=== PATIENT | male | born 1950 | race Hispanic/Latino ===

== ENCOUNTER 2018-05-05 00:14 | Inpatient (IN) | payer MEDICARE, OTHER ==
[~2018-05-05] VITALS: Ht 170.2 cm; Wt 84.1 kg
[~2018-05-05 00:14] MED LIST: AMOXICILLI250 MG/5 M ORAL; ASPIRIN EC81 MG ORAL; BIAXIN500 MG ORAL; CARVEDILOL12.5 MG ORAL; COREG25 MG ORAL; GLIPIZIDE10 MG PO; LOVASTATIN40 MG ORAL; NIFEDICAL XL60 MG ORAL; PLAVIX75 MG ORAL; PROTONIX40 MG ORAL; STARLIX120 MG ORAL; STARLIX60 MG ORAL; UNOBMED
[2018-05-05] MEDS ORDERED: Sodium Chloride 500ML 500 ML IV ONE (00:30)
--- NOTE | 2018-05-05 00:30 | Emergency Room Report ---
History of Present Illness General Chief Complaint: Generalized Weakness Source: Patient, Medical Record, EMS Present Illness HPI This is a 67-year-old male with a history of renal failure on hemodialysis. Hemodialysis days are Sunday, and Sunday. He also has diabetes and peripheral arterial disease. He presents with chief complaint of joint weakness. Onset for last 3 days. No fever chills. Decreased appetite. Unable to stand because weakness. 2 weeks ago he had arterial bypass to get cervical patient back to his lower extremities. 3 days ago he noticed discoloration and swelling to his right foot. His been getting worse. Now can't bear weight. Per EMS, his blood sugar was very high. Patient complaining of nausea but no vomiting or diarrhea. No cough or congestion. Minimal pain in the foot. Allergies: Coded Allergies: No Known Allergies (Unverified , 05/05/18) Patient History Past Medical History: see triage record, old chart reviewed, DM Past Surgical History: other Pertinent Family History: none Social History: Denies: smoking Immunizations: other Reviewed Nursing Documentation: PMH: Agreed; PSxH: Agreed Nursing Documentation-PMH Hx Hypertension: Yes Hx Diabetes: Yes Hx Dialysis: Yes - T--Sun Review of Systems Constitutional: Reports: malaise, weakness Eye: Denies: eye pain, blurred vision ENT: Denies: ear pain, nose congestion, throat swelling Respiratory: Denies: cough, shortness of breath Cardiovascular: Denies: chest pain, palpitations Gastrointestinal: Denies: abdominal pain, diarrhea, nausea, vomiting Musculoskeletal: Denies: back pain, joint pain Skin: Denies: rash Neurological: Denies: headache, numbness Endocrine: Denies: increased thirst, increased urine Hematologic/Lymphatic: Denies: easy bruising All Other Systems: negative except mentioned in HPI Physical Exam Vital Signs Date Time Temp Pulse Resp B/P (MAP) Pulse Ox O2 Delivery O2 Flow Rate FiO2 05/05/18 00:08 100.5 87 18 120/58 98 Room Air 100.6 vitals with low-grade feve Sp02 EP Interpretation: reviewed, normal General Appearance: well appearing, no apparent distress, alert Head: normocephalic, atraumatic Eyes: bilateral eye PERRL, bilateral eye EOMI ENT: hearing grossly normal, normal pharynx Neck: full range of motion, supple, no meningismus Respiratory: chest non-tender, lungs clear, normal breath sounds Cardiovascular #1: regular rate, rhythm, no murmur Gastrointestinal: normal bowel sounds, non tender, no mass, no organomegaly, no bruit, non-distended Musculoskeletal: back normal, normal range of motion, other - Right foot: There is edema with ecchymosis from midfoot to calcaneus. There is abrasion to the medial malleolus. There is no pulse that can be palpated or dopplered on the foot. Unable to fill a pulse in the popliteal fossa. Neurologic: alert, oriented x3 Psychiatric: mood/affect normal Skin: warm/dry Procedures Critical Care Time Critical Care Time Critical care is mandated in this patient who presented with sepsis from diabetic foot gangrene versus ischemia. Patient require my urgent intervention to attenuate the risks of metabolic collapse which may lead to cardiovascular collapse and . Critical care time is 35 minutes excluding any reportable procedure. Critical care time included evaluation, multiple reevaluation, looking at old charts, interpreting laboratory and diagnostic data, discussing case with patient and family and consultants, and charting. Medical Decision Making Diagnostic Impression: Primary Impression: Sepsis Qualified Codes: A41.9 - Sepsis, unspecified organism Additional Impressions: Gangrene of right foot Peripheral arterial occlusive disease Hyperglycemia due to type 1 diabetes mellitus ESRD (end stage renal disease) on dialysis ACS (acute coronary syndrome) ER Course Patient present with weakness and has a white count. This is most likely secondary to ischemia and necrotic tissue of his foot. There is no pulse. This has been ongoing for 3 days already. Antibiotics given. This may explain worsening of his cardiac function. This may be demand ischemia. Aspirin and Lovenox also given. Patient is more comfortable. We'll admit for IV antibiotics and further workup. I contacted Dr. Espinoza for admission. Lab Results Impression labs with elevated troponin and the wbc EKG Diagnostic Results Rate: normal Rhythm: NSR ST Segments: other - RBBB Rhythm Strip Diag. Results Rhythm Strip Time: 00:47 EP Interpretation: yes Rate: 80 Rhythm: NSR, no PVC's, no ectopy Chest X-Ray Diagnostic Results Chest X-Ray Diagnostic Results : Chest X-Ray Ordered: Yes # of Views/Limited/Complete: 1 View Indication: Shortness of Breath EP Interpretation: Yes Interpretation: no consolidation, no effusion, no pneumothorax, other - CM Impression: No acute disease Other X-Ray Diagnostic Results Other X-Ray Diagnostic Results : X-Ray ordered: Rt foot xrays # of Views/Limited Vs Complete: 3 View Indication: Pain EP Interpretation: Yes Interpretation: no dislocation, no soft tissue swelling, other - calcified vessels. degenerative changes. no gas Impression: No acute disease Electronically Signed by: Michael Villarreal MD Last Vital Signs Date Time Temp Pulse Resp B/P (MAP) Pulse Ox O2 Delivery O2 Flow Rate FiO2 05/05/18 00:08 100.5 87 18 120/58 98 Room Air 100.6 Status: improved Disposition: ADMITTED INPATIENT Condition: Serious Scripts Unable to Obtain Active Prescriptions or Reported Meds MICHAEL VILLARREAL M.D. May 05, 2018 00:30
[2018-05-05 01:20] LABS: HEMATOCRIT 29.3 % (42.0-52.0); HEMOGLOBIN 9.6 G/DL (14.2-18.0); MEAN CORPUSCULAR VOLUME 86 FL (80-99); PLATELET COUNT 272 K/UL (150-450); RED CELL DISTRIBUTION WIDTH 14.5 % (11.6-14.8); WHITE BLOOD COUNT 20.7 K/UL (4.8-10.8)
[2018-05-05 01:29] LABS: INR 1.2 (0.9-1.1)
[2018-05-05 01:35] LABS: ALANINE AMINOTRANSFERASE 47 U/L (12-78); ALBUMIN 2.6 G/DL (3.4-5.0); ALBUMIN/GLOBULIN RATIO 0.6 (1.0-2.7); ALKALINE PHOSPHATASE 269 U/L (46-116); ANION GAP 8 mmol/L (5-15); ASPARTATE AMINO TRANSFERASE 50 U/L (15-37); BILIRUBIN,TOTAL 0.6 MG/DL (0.2-1.0); BLOOD UREA NITROGEN 53 mg/dL (7-18); CARBON DIOXIDE 27 MMOL/L (21-32); CHLORIDE 94 MMOL/L (98-107); CKMB 2.4 NG/ML (0.0-3.6); CREATINE KINASE 484 U/L (26-308); CREATININE 5.2 MG/DL (0.55-1.30); POTASSIUM 4.2 MMOL/L (3.5-5.1); SODIUM 129 MMOL/L (136-145)
[2018-05-05 01:45] VITALS: BP 157/77
[2018-05-05] MEDS ORDERED: Insulin Human Regular 100units/ml 3ml IV ONE ×2 (01:45→04:15)
[2018-05-05] MEDS ORDERED: Piperacillin/Tazobactam 3.375 GM in NS 110 ML IVPB ONE (01:45)
[2018-05-05] MEDS ORDERED: Aspirin Baby 81mg ORAL ONE (01:45)
[2018-05-05] MEDS ORDERED: Enoxaparin 80mg Inj SUBQ ONE (01:45)
[2018-05-05] MEDS ORDERED: Vancomycin 1.5gm/D5W 250ml 250 ML IVPB ONE (01:45)
--- NOTE | 2018-05-05 02:05 | Diagnostic Imaging Report ---
EXAM: XR Chest, 1 View CLINICAL HISTORY: PAIN TECHNIQUE: Frontal view of the chest. COMPARISON: No relevant prior studies available. FINDINGS: Lungs: Unremarkable. No consolidation. Pleural space: Unremarkable. No pneumothorax. Heart: Unremarkable. No cardiomegaly. Mediastinum: Unremarkable. Bones/joints: Unremarkable. IMPRESSION: No acute findings.
--- NOTE | 2018-05-05 02:06 | Diagnostic Imaging Report ---
EXAM: XR Right Foot Complete, 3 or More Views CLINICAL HISTORY: PAIN TECHNIQUE: Frontal, lateral and oblique views of the right foot. COMPARISON: No relevant prior studies available. FINDINGS: Bones/joints: Possible nondisplaced fractures at the bases of the third through fifth proximal phalanges. No dislocation. Soft tissues: Unremarkable. No radiopaque foreign body. IMPRESSION: Possible nondisplaced fractures at the bases of the third through fifth proximal phalanges.
[2018-05-05 03:43] VITALS: BP 100/57
[2018-05-05 04:39] VITALS: BP 95/68
[2018-05-05 05:10] VITALS: BP 97/63
[2018-05-05] MEDS ORDERED: Milk of Magnesia 30ml Ud ORAL PRN (06:00)
[2018-05-05] MEDS ORDERED: Zolpidem 5mg tab ORAL PRN (06:00)
[2018-05-05 08:11] LABS: HEMATOCRIT 28.9 % (42.0-52.0); HEMOGLOBIN 9.7 G/DL (14.2-18.0); MEAN CORPUSCULAR VOLUME 87 FL (80-99); PLATELET COUNT 285 K/UL (150-450); RED BLOOD COUNT 3.34 M/UL (4.70-6.10); RED CELL DISTRIBUTION WIDTH 14.9 % (11.6-14.8)
[2018-05-05 08:15] LABS: WHITE BLOOD COUNT 25.2 K/UL (4.8-10.8)
[2018-05-05] MEDS: NovoLOG Insulin Flexpen SUBQ SCH ×4 (08:25→20:57)
[2018-05-05] MEDS: Heparin 5000 units/ml inj SUBQ SCH ×2 (08:25→20:55)
[2018-05-05 08:42] LABS: ANION GAP 15 mmol/L (5-15); BLOOD UREA NITROGEN 53 mg/dL (7-18); CALCIUM 9.5 MG/DL (8.5-10.1); CARBON DIOXIDE 25 MMOL/L (21-32); CHLORIDE 96 MMOL/L (98-107); CREATININE 5.3 MG/DL (0.55-1.30); POTASSIUM 3.9 MMOL/L (3.5-5.1); SODIUM 136 MMOL/L (136-145)
[2018-05-05] MEDS: Piperacillin/Tazobactam 2.25 GM in D5W 55 ML IV SCH ×2 (10:06→17:56)
--- NOTE | 2018-05-05 10:22 | History & Physical ---
History and Physical History & Physicial 67-year-old male with a history of renal failure on hemodialysis. No fever chills. patient with significant weakness. 2 weeks ago he had arterial bypass to get cervical patient back to his lower extremities. 3 days ago he noticed discoloration and swelling to his right foot. His been getting worse. He cannot bear weight. patient with elevated sugars. Patient complaining of nausea. No cough or congestion. Patient with pain in the foot. Allergies: No Known Allergies (Unverified , 05/05/18) Patient History Past Medical History: ESRD, PAD, DM Past Surgical History: vascular Pertinent Family History: none Social History: Denies: smoking, disabled Reviewed of systems: as above Vital Signs in ER Date Time Temp Pulse Resp B/P (MAP) Pulse Ox O2 Delivery O2 Flow Rate FiO2 05/05/18 00:08 100.5 87 18 120/58 98 Room Air 100.6 Sp02 EP Interpretation: reviewed, normal General Appearance: well appearing, no apparent distress, alert Head: normocephalic, atraumatic Eyes: bilateral eye PERRL, bilateral eye EOMI ENT: hearing grossly normal, normal pharynx Neck: full range of motion, supple, no meningismus Respiratory: chest non-tender, lungs clear, normal breath sounds Cardiovascular #1: regular rate, rhythm, no murmur Gastrointestinal: normal bowel sounds, non tender, Musculoskeletal: Right foot: There is edema with ecchymosis from midfoot to calcaneus. There is abrasion to the medial malleolus. There is no pulse Neurologic: alert, oriented x3 Psychiatric: mood/affect normal Skin: warm/dry Laboratory Tests Test 05/05/18 00:40 05/05/18 06:35 White Blood Count 20.7 K/UL (4.8-10.8) H 25.2 K/UL (4.8-10.8) *H Red Blood Count 3.40 M/UL (4.70-6.10) L 3.34 M/UL (4.70-6.10) L Hemoglobin 9.6 G/DL (14.2-18.0) L 9.7 G/DL (14.2-18.0) L Hematocrit 29.3 % (42.0-52.0) L 28.9 % (42.0-52.0) L Mean Corpuscular Volume 86 FL (80-99) 87 FL (80-99) Mean Corpuscular Hemoglobin 28.2 PG (27.0-31.0) 29.2 PG (27.0-31.0) Mean Corpuscular Hemoglobin Concent 32.7 G/DL (32.0-36.0) 33.7 G/DL (32.0-36.0) Red Cell Distribution Width 14.5 % (11.6-14.8) 14.9 % (11.6-14.8) H Platelet Count 272 K/UL (150-450) 285 K/UL (150-450) Mean Platelet Volume 8.2 FL (6.5-10.1) 7.7 FL (6.5-10.1) Neutrophils (%) (Auto) % (45.0-75.0) % (45.0-75.0) Lymphocytes (%) (Auto) % (20.0-45.0) % (20.0-45.0) Monocytes (%) (Auto) % (1.0-10.0) % (1.0-10.0) Eosinophils (%) (Auto) % (0.0-3.0) % (0.0-3.0) Basophils (%) (Auto) % (0.0-2.0) % (0.0-2.0) Differential Total Cells Counted 100 100 Neutrophils % (Manual) 82 % (45-75) H 81 % (45-75) H Lymphocytes % (Manual) 4 % (20-45) L 8 % (20-45) L Monocytes % (Manual) 13 % (1-10) H 11 % (1-10) H Eosinophils % (Manual) 1 % (0-3) 0 % (0-3) Basophils % (Manual) 0 % (0-2) 0 % (0-2) Band Neutrophils 0 % (0-8) 0 % (0-8) Platelet Estimate Adequate Adequate Platelet Morphology Normal Normal Anisocytosis 1+ 1+ Ovalocytes 1+ Acanthocytes 1+ Prothrombin Time 12.5 SEC (9.30-11.50) H Prothromb Time International Ratio 1.2 (0.9-1.1) H Activated Partial Thromboplast Time 35 SEC (23-33) H Sodium Level 129 MMOL/L (136-145) L 136 MMOL/L (136-145) Potassium Level 4.2 MMOL/L (3.5-5.1) 3.9 MMOL/L (3.5-5.1) Chloride Level 94 MMOL/L (98-107) L 96 MMOL/L (98-107) L Carbon Dioxide Level 27 MMOL/L (21-32) 25 MMOL/L (21-32) Anion Gap 8 mmol/L (5-15) 15 mmol/L (5-15) Blood Urea Nitrogen 53 mg/dL (7-18) H 53 mg/dL (7-18) H Creatinine 5.2 MG/DL (0.55-1.30) H 5.3 MG/DL (0.55-1.30) H Estimat Glomerular Filtration Rate 11.1 mL/min (>60) 10.8 mL/min (>60) Glucose Level 646 MG/DL (74-106) *H 233 MG/DL (74-106) #H Lactic Acid Level 1.70 mmol/L (0.4-2.0) Calcium Level 10.0 MG/DL (8.5-10.1) 9.5 MG/DL (8.5-10.1) Total Bilirubin 0.6 MG/DL (0.2-1.0) Aspartate Amino Transf (AST/SGOT) 50 U/L (15-37) H Alanine Aminotransferase (ALT/SGPT) 47 U/L (12-78) Alkaline Phosphatase 269 U/L (46-116) H Total Creatine Kinase 484 U/L (26-308) H Creatine Kinase MB 2.4 NG/ML (0.0-3.6) Creatine Kinase MB Relative Index 0.4 Troponin I 1.247 ng/mL (0.000-0.056) Total Protein 7.3 G/DL (6.4-8.2) Albumin 2.6 G/DL (3.4-5.0) L Globulin 4.7 g/dL Albumin/Globulin Ratio 0.6 (1.0-2.7) L Hypochromasia 1+ IMPRESSION ESRD anemia possible sepsis wound infection PAD DM HTN elevated troponin, likely leak PLAN monitor sugars wound care iv antibiotics ID eval renal for HD has been on HD chronically impression, plan, and exam edited and reviewed in detail care discussed with Alvaro Terrazas MD May 05, 2018 10:22
[2018-05-05] MEDS ORDERED: Zosyn 3.375gm/50ml Premix 50 ML IVPB SCH (12:00)
[2018-05-05 16:00] VITALS: BP 107/56
--- NOTE | 2018-05-05 17:30 | Consultation ---
DATE OF CONSULTATION: 05/05/2018 CONSULTING PHYSICIAN: Esteban Maldonado M.D. REASON FOR CONSULTATION: 1. End-stage renal disease, on hemodialysis. 2. Hypertension. REFERRING PHYSICIAN: Alvaro Espinoza M.D. HISTORY OF PRESENT ILLNESS: The patient is a pleasant 67-year-old male, undergoes hemodialysis every Sunday, , and Sunday. The patient does have chronic morbidities consisting of diabetes and peripheral arterial disease. He has decreased appetite, unable to stand, feeling weak over the last several days. Three days ago, he noted discoloration and swelling of his right foot, which had progressively gotten worse and he was having difficulty controlling his blood glucose. No nausea, vomiting, or diarrhea. He says that he continues to go to hemodialysis Sunday, , and Sunday. 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 ALLERGIES: No known drug allergies. PAST MEDICAL HISTORY: 1. Hypertension. 2. Diabetes mellitus. 3. End-stage renal disease, on hemodialysis. 4. Peripheral arterial disease. 5. Hyperlipidemia. PAST SURGICAL HISTORY: Dialysis access. FAMILY HISTORY: Positive for hypertension, diabetes, and hyperlipidemia. SOCIAL HISTORY: No current tobacco, alcohol, or illicit drug use. REVIEW OF SYSTEMS: NEUROLOGIC: The patient denies headache, change in vision, syncope or presyncopal episodes. CARDIOVASCULAR: No current chest pain, palpitations, or angina. PULMONARY: No difficulty breathing, productive cough or sputum. GASTROINTESTINAL/GENITOURINARY: No changes in nausea, vomiting or diarrhea. ENDOCRINOLOGY: Denies sweats, fevers, or chills. MUSCULOSKELETAL: The patient feeling weak, tired and fatigue. LABORATORY AND DIAGNOSTIC DATA: Labs 05/05/2018, white cell count 25.2, hemoglobin 9.7, and platelet count 285. Sodium 136, potassium 3.9, BUN 53, creatinine 5.3, serum glucose 233, calcium 9.5. PHYSICAL EXAMINATION: GENERAL: The patient awake, alert, not otherwise in distress. VITAL SIGNS: Blood pressure 97/63, respiratory rate 20, pulse 76, temperature 97.6 degrees, 95% oxygen saturation on room air. HEENT: Extraocular muscles intact. No lymphadenopathy noted. CARDIOVASCULAR: S1 and S2. No rubs or gallops. PULMONARY: Clear to auscultation bilaterally. No rales, rhonchi or wheezes. ABDOMEN: Nondistended and nontender. EXTREMITY: Right foot with edema and ecchymosis to the midfoot of near calcaneus region. ASSESSMENT AND PLAN: 1. End-stage renal disease, on hemodialysis. We will continue hemodialysis on a Sunday, , and Sunday schedule. We will check daily laboratories. 2. Anemia of chronic kidney disease. We will continue Epogen if hemoglobin less than 10. 3. Sepsis/cellulitis could be secondary to ischemia, necrotic tissue of his foot. Antibiotic management per primary care physician and Infectious Disease. 4. Hypertension. Adjust medications as deemed appropriate. 5. Diabetes mellitus. Continue outpatient antiglycemic medications. Let me take this opportunity to thank, Dr. Espinoza, for allowing me to assist in the care of this patient during this hospitalization. I will continue to follow him on a daily basis until time of discharge. Esteabn Maldnoado MD DR: ANIBAL JOB#: [id number] CC:
[2018-05-05] MEDS ORDERED: ASPIRIN EC81 MG ORAL (18:09)
[2018-05-05] MEDS ORDERED: HYDRALAZINE HCL50 MG ORAL (18:14)
[2018-05-05] MEDS ORDERED: CARVEDILOL12.5 MG ORAL (18:14)
[2018-05-05] MEDS ORDERED: GLIPIZIDE XL10 MG ORAL (18:14)
[2018-05-05] MEDS ORDERED: AMLODIPINE BESY10 MG ORAL (18:23)
[2018-05-05] MEDS ORDERED: ZYRTEC10 MG ORAL (18:23)
[2018-05-05] MEDS ORDERED: LOSARTAN POTAS100 MG ORAL (18:23)
[2018-05-05] MEDS ORDERED: TRAZODONE HCL150 MG ORAL (18:23)
[2018-05-05] MEDS ORDERED: ATORVASTATIN CA40 MG ORAL (18:23)
[2018-05-05] MEDS ORDERED: CLOPIDOGREL75 MG ORAL (18:23)
--- NOTE | 2018-05-05 18:45 | Consultation ---
DATE OF CONSULTATION: 05/05/2018 INFECTIOUS DISEASE CONSULTATION CONSULTING PHYSICIAN: Moy Gannon M.D. This consult is for coverage of Dr. Tovar. PRIMARY ATTENDING PHYSICIAN: Alvaro Espinoza M.D. REASON FOR CONSULTATION: Diabetic foot, sepsis. HISTORY OF PRESENT ILLNESS: This is a 67-year-old male, admitted yesterday complaining of pain, discoloration, and swelling in the right foot that is getting worse. The patient had low-grade fever. In the ER, he had temperature of 100.6 and leukocytosis that is increasing today. PAST MEDICAL HISTORY: Significant for diabetes mellitus, end-stage renal disease, on hemodialysis, peripheral vascular disease, hypertension, and anemia. ALLERGIES: No known drug allergies. MEDICATIONS: Getting Epogen, Zosyn, heparin, insulin, Prevacid, vancomycin, and sodium chloride. SOCIAL HISTORY: No history of alcohol or drug abuse. He is and originally from [facility]. REVIEW OF SYSTEMS: The patient is a very poor historian. Occasional cough. No chest pain. He has nausea, vomiting, and mild pain in the right foot. PHYSICAL EXAMINATION: VITAL SIGNS: Temperature is 97.6, pulse 76, blood pressure 97/63. GENERAL APPEARANCE: No acute distress. HEAD AND NECK: Pale conjunctivae. HEART: Normal rate, regular. LUNGS: Clear. ABDOMEN: Soft, nontender. EXTREMITIES: He has no edema. Muscle atrophy in legs. He has coolness in the right foot. He has skin ulcer in the right malleolar area with skin discoloration mainly in ankle and to some extent in right big toe. LABORATORY AND DIAGNOSTIC DATA: WBC 25.2, hemoglobin 9.7, hematocrit 28.9, platelets 285,000. Sodium 136, potassium 3.6, chloride 96, bicarbonate 25, BUN 53, creatinine 5.3, glucose 233, and was 646 at the time of admission. Troponin is 1.24. CK is elevated at 484. Alkaline phosphatase is 269, AST is 50. Foot x-ray, possible nondisplaced fracture of the base of the third through fifth proximal phalanges. Chest x-ray, no acute findings. IMPRESSION: Sepsis with fever and leukocytosis. The patient seems to have diabetic foot with ischemia in the right foot. He has diabetes with hyperglycemia. He has end-stage renal disease, on hemodialysis. He has history of peripheral vascular disease. RECOMMENDATION: We will continue with Zosyn and vancomycin. The patient needs arterial duplex to rule out peripheral vascular disease. We will continue with current medication of vancomycin and Zosyn. We will follow up the culture. At the end of my exam, I thank Dr. Espinoza for involving me in the care of this patient. Moy Gannon M.D. DR: Ace JOB#: [id number] CC: ARIANNA
[2018-05-05 20:00] VITALS: BP 100/52
[2018-05-05] MEDS: HydrALAZINE 50mg tab ORAL SCH (22:00)
[2018-05-05] MEDS: GlipiZIDE 5mg tab ORAL SCH (22:26)
[2018-05-05] MEDS: TraZODone HCl 25 mg tablet ORAL SCH (22:26)
[2018-05-06] VITALS: BP 112/58
[2018-05-06] MEDS: Piperacillin/Tazobactam 2.25 GM in D5W 55 ML IV SCH ×3 (01:53→17:00)
[2018-05-06 04:00] VITALS: BP 110/61
[2018-05-06 04:46] LABS: HEMATOCRIT 27.6 % (42.0-52.0); HEMOGLOBIN 8.9 G/DL (14.2-18.0); MEAN CORPUSCULAR VOLUME 86 FL (80-99); PLATELET COUNT 251 K/UL (150-450); RED CELL DISTRIBUTION WIDTH 14.6 % (11.6-14.8)
[2018-05-06 04:58] LABS: ANION GAP 15 mmol/L (5-15); BLOOD UREA NITROGEN 65 mg/dL (7-18); CALCIUM 9.2 MG/DL (8.5-10.1); CARBON DIOXIDE 23 MMOL/L (21-32); CHLORIDE 97 MMOL/L (98-107); CREATININE 6.4 MG/DL (0.55-1.30); POTASSIUM 4.3 MMOL/L (3.5-5.1); SODIUM 135 MMOL/L (136-145)
[2018-05-06 05:02] LABS: WHITE BLOOD COUNT 23.3 K/UL (4.8-10.8)
[2018-05-06] MEDS: Norco 5mg/325mg tab ORAL PRN (05:32)
[2018-05-06] MEDS: HydrALAZINE 50mg tab ORAL SCH ×3 (05:38→21:36)
[2018-05-06] MEDS ORDERED: Vancomycin 1.5gm/D5W 250ml 250 ML IVPB ONE (06:00)
[2018-05-06] MEDS: NovoLOG Insulin Flexpen SUBQ SCH ×4 (06:02→21:29)
[2018-05-06 08:00] VITALS: BP 105/57
--- NOTE | 2018-05-06 08:26 | General Progress Note ---
Assessment/Plan Assessment/Plan IMPRESSION ESRD anemia possible sepsis wound infection PAD DM HTN elevated troponin, likely leak PLAN monitor sugars wound care iv antibiotics ID eval noted renal for HD appreciated has been on HD chronically impression, plan, and exam edited and reviewed in detail care discussed with RN Subjective Allergies: Coded Allergies: No Known Allergies (Unverified , 05/05/18) Objective Last 24 Hour Vital Signs Date Time Temp Pulse Resp B/P (MAP) Pulse Ox O2 Delivery O2 Flow Rate FiO2 05/06/18 05:38 98/47 05/06/18 04:00 97.0 79 18 110/61 (77) 96 97.0 05/06/18 04:00 76 05/06/18 00:00 79 05/06/18 00:00 97.2 79 18 112/58 (76) 94 97.2 05/05/18 22:00 100/52 05/05/18 21:00 Room Air 05/05/18 20:00 97.4 71 20 100/52 (68) 95 97.4 05/05/18 20:00 71 05/05/18 16:00 98.2 70 20 107/56 (73) 95 98.2 05/05/18 16:00 71 05/05/18 12:00 70 05/05/18 09:00 Room Air Intake and Output 05/05/18 05/06/18 19:00 07:00 Intake Total 400 ml 1379 ml Balance 400 ml 1379 ml Intake IV Total 1379 ml Other 400 ml # Voids 2 Laboratory Tests 05/06/18 04:00: White Blood Count 23.3*H, Red Blood Count 3.20L, Hemoglobin 8.9L, Hematocrit 27.6L, Mean Corpuscular Volume 86, Mean Corpuscular Hemoglobin 27.7, Mean Corpuscular Hemoglobin Concent 32.1, Red Cell Distribution Width 14.6, Platelet Count 251, Mean Platelet Volume 7.5, Neutrophils (%) (Auto) , Lymphocytes (%) ( Auto) , Monocytes (%) (Auto) , Eosinophils (%) (Auto) , Basophils (%) (Auto) , Neutrophils % (Manual) [Pending], Lymphocytes % (Manual) [Pending], Platelet Estimate [Pending], Platelet Morphology [Pending], Sodium Level 135L, Potassium Level 4.3, Chloride Level 97L, Carbon Dioxide Level 23, Anion Gap 15, Blood Urea Nitrogen 65H, Creatinine 6.4H, Estimat Glomerular Filtration Rate 8.7, Glucose Level 108#H, Calcium Level 9.2, Troponin I 1.213H, Random Vancomycin Level 16.8 Height (Feet): 5 Height (Inches): 7.00 Weight (Pounds): 181 Objective Sp02 EP Interpretation: reviewed, normal General Appearance: well appearing, no apparent distress, alert Head: normocephalic, atraumatic Eyes: bilateral eye PERRL, bilateral eye EOMI ENT: hearing grossly normal, normal pharynx Neck: full range of motion, supple, no meningismus Respiratory: chest non-tender, lungs clear, normal breath sounds Cardiovascular #1: regular rate, rhythm, no murmur Gastrointestinal: normal bowel sounds, non tender, Musculoskeletal: Right foot: There is edema with ecchymosis from midfoot to calcaneus. There is abrasion to the medial malleolus. There is no pulse Neurologic: alert, oriented x3 Psychiatric: mood/affect normal Skin: warm/dry Alvaro Espinoza MD May 06, 2018 08:26
[2018-05-06] MEDS: GlipiZIDE 5mg tab ORAL SCH ×2 (08:45→21:26)
[2018-05-06] MEDS: Heparin 5000 units/ml inj SUBQ SCH ×2 (08:47→21:29)
[2018-05-06] MEDS: Carvedilol 12.5mg tab ORAL SCH ×2 (08:49→21:25)
[2018-05-06] MEDS: Losartan 50mg tab ORAL SCH (08:50)
[2018-05-06] MEDS: Aspirin EC 81mg tab ORAL SCH (08:52)
[2018-05-06] MEDS ORDERED: Epogen (for ESRD on dialysis) SUBQ SCH ×2 (09:00→21:00)
--- NOTE | 2018-05-06 09:36 | Nephrology Progress Note ---
Assessment/Plan Assessment/Plan 1. ESRD- HD TTS - will place orders 2. Elevated Trop I - per cardiology management 3. LE Cellulitis- Abx 4. Anemia of CKD - EPO if Hgb <10 5. SHPT- check phos levels and add binders if necessary Subjective Date patient seen: May 06, 2018 Time patient seen: 09:32 ROS Limited/Unobtainable: No Allergies: Coded Allergies: No Known Allergies (Unverified , 05/05/18) All Systems: reviewed and negative except above Subjective Patient in no distress Objective Last 24 Hour Vital Signs Date Time Temp Pulse Resp B/P (MAP) Pulse Ox O2 Delivery O2 Flow Rate FiO2 05/06/18 09:00 Room Air 05/06/18 08:50 105/57 05/06/18 08:50 71 105/57 05/06/18 08:49 71 105/57 05/06/18 08:00 97.5 71 18 105/57 (73) 96 97.5 05/06/18 05:38 98/47 05/06/18 04:00 97.0 79 18 110/61 (77) 96 97.0 05/06/18 04:00 76 05/06/18 00:00 79 05/06/18 00:00 97.2 79 18 112/58 (76) 94 97.2 05/05/18 22:00 100/52 05/05/18 21:00 Room Air 05/05/18 20:00 97.4 71 20 100/52 (68) 95 97.4 05/05/18 20:00 71 05/05/18 16:00 98.2 70 20 107/56 (73) 95 98.2 05/05/18 16:00 71 05/05/18 12:00 70 Intake and Output 05/05/18 05/06/18 19:00 07:00 Intake Total 400 ml 1379 ml Balance 400 ml 1379 ml IV Total 1379 ml Other 400 ml # Voids 2 Laboratory Tests 05/06/18 04:00: White Blood Count 23.3*H, Red Blood Count 3.20L, Hemoglobin 8.9L, Hematocrit 27.6L, Mean Corpuscular Volume 86, Mean Corpuscular Hemoglobin 27.7, Mean Corpuscular Hemoglobin Concent 32.1, Red Cell Distribution Width 14.6, Platelet Count 251, Mean Platelet Volume 7.5, Neutrophils (%) (Auto) , Lymphocytes (%) ( Auto) , Monocytes (%) (Auto) , Eosinophils (%) (Auto) , Basophils (%) (Auto) , Differential Total Cells Counted 100, Neutrophils % (Manual) 84H, Lymphocytes % (Manual) 6L, Monocytes % (Manual) 5, Eosinophils % (Manual) 3, Basophils % ( Manual) 0, Band Neutrophils 2, Platelet Estimate Adequate, Platelet Morphology Normal, Anisocytosis 1+, Ovalocytes 1+, Acanthocytes 1+, Schistocytes 1+, Sodium Level 135L, Potassium Level 4.3, Chloride Level 97L, Carbon Dioxide Level 23, Anion Gap 15, Blood Urea Nitrogen 65H, Creatinine 6.4H, Estimat Glomerular Filtration Rate 8.7, Glucose Level 108#H, Calcium Level 9.2, Troponin I 1.213H, Random Vancomycin Level 16.8 Height (Feet): 5 Height (Inches): 7.00 Weight (Pounds): 181 General Appearance: no apparent distress, alert EENT: PERRL/EOMI, normal ENT inspection Neck: non-tender, normal alignment, supple Cardiovascular: normal rate, regular rhythm Respiratory/Chest: lungs clear, normal breath sounds Abdomen: normal bowel sounds, non tender, soft Edema: no edema noted Arm (L), no edema noted Arm (R), no edema noted Leg (L), no edema noted Leg (R), no edema noted Pedal (L), no edema noted Pedal (R), no edema noted Generalized Esteban Maldonado M.D. May 06, 2018 09:36
[2018-05-06 16:00] VITALS: BP 97/53
[2018-05-06 20:00] VITALS: BP 107/60
[2018-05-06] MEDS: Atorvastatin 80mg tab ORAL SCH (21:25)
[2018-05-06] MEDS: TraZODone HCl 25 mg tablet ORAL SCH (21:25)
[2018-05-07] VITALS: BP 118/61
[2018-05-07] MEDS: Piperacillin/Tazobactam 2.25 GM in D5W 55 ML IV SCH ×3 (02:06→19:33)
[2018-05-07 04:00] VITALS: BP 102/44
[2018-05-07] MEDS: HydrALAZINE 50mg tab ORAL SCH ×3 (05:46→22:00)
[2018-05-07] MEDS: NovoLOG Insulin Flexpen SUBQ SCH ×4 (06:15→20:35)
[2018-05-07 08:00] VITALS: BP 101/61
--- NOTE | 2018-05-07 08:32 | General Progress Note ---
Assessment/Plan Assessment/Plan IMPRESSION ESRD anemia possible sepsis wound infection PAD DM HTN elevated troponin, likely leak PLAN monitor sugars wound care and management iv antibiotics ID eval noted renal for HD appreciated has been on HD chronically stabilize but at present too ill to dc may need snf impression, plan, and exam edited and reviewed in detail care discussed with RN Subjective Allergies: Coded Allergies: No Known Allergies (Unverified , 05/25/15) Subjective all appreciated undergoing HD ID follow up and cultures noted Objective Last 24 Hour Vital Signs Date Time Temp Pulse Resp B/P (MAP) Pulse Ox O2 Delivery O2 Flow Rate FiO2 05/07/18 05:46 102/44 05/07/18 04:00 98.1 67 18 102/44 (63) 97 98.1 05/07/18 04:00 69 05/07/18 00:00 97.8 66 19 118/61 (80) 97 97.8 05/07/18 00:00 89 05/06/18 21:36 107/60 05/06/18 21:25 74 107/60 05/06/18 21:00 Room Air 05/06/18 20:00 71 05/06/18 20:00 98.0 74 19 107/60 (76) 97 98.0 05/06/18 16:00 69 05/06/18 16:00 97.0 66 97/53 (68) 97.0 05/06/18 14:00 110/58 05/06/18 12:00 71 05/06/18 09:00 Room Air 05/06/18 08:50 105/57 05/06/18 08:50 71 105/57 05/06/18 08:49 71 105/57 Intake and Output 05/06/18 05/07/18 19:00 07:00 Intake Total 360 ml 1542 ml Balance 360 ml 1542 ml Intake Oral 360 ml 460 ml IV Total 1082 ml # Voids 1 # Bowel Movements 2 Laboratory Tests 05/07/18 06:05: Sodium Level [Pending], Potassium Level [Pending], Chloride Level [Pending], Carbon Dioxide Level [Pending], Blood Urea Nitrogen [Pending], Creatinine [ Pending], Estimat Glomerular Filtration Rate [Pending], Glucose Level [Pending] , Calcium Level [Pending], Phosphorus Level [Pending] Height (Feet): 5 Height (Inches): 7.00 Weight (Pounds): 182 Objective Sp02 EP Interpretation: reviewed, normal General Appearance: well appearing, no apparent distress, alert Head: normocephalic, atraumatic Eyes: bilateral eye PERRL, bilateral eye EOMI ENT: hearing grossly normal, normal pharynx Neck: full range of motion, supple, no meningismus Respiratory: chest non-tender, lungs clear, normal breath sounds Cardiovascular #1: regular rate, rhythm, no murmur Gastrointestinal: normal bowel sounds, non tender, Musculoskeletal: Right foot: ecchymosis from midfoot to calcaneus. Neurologic: alert, oriented x3 Psychiatric: mood/affect normal Skin: warm/dry Alvaro Espinoza MD May 07, 2018 08:32
--- NOTE | 2018-05-07 08:38 | Nephrology Progress Note ---
Assessment/Plan Assessment/Plan 1. ESRD- HD TTS - HD today 2. Elevated Trop I. Defer to cardiology/PCP 3. LE Cellulitis- Abx 4. Anemia of CKD - EPO 3 x week 5. SHPT- check phos levels and add binders if necessary - AM labs pending Subjective Date patient seen: May 07, 2018 Time patient seen: 08:36 ROS Limited/Unobtainable: No Allergies: Coded Allergies: No Known Allergies (Unverified , 05/25/15) All Systems: reviewed and negative except above Subjective Patient in no distress. Feeling well, no complaints Objective Last 24 Hour Vital Signs Date Time Temp Pulse Resp B/P (MAP) Pulse Ox O2 Delivery O2 Flow Rate FiO2 05/07/18 05:46 102/44 05/07/18 04:00 98.1 67 18 102/44 (63) 97 98.1 05/07/18 04:00 69 05/07/18 00:00 97.8 66 19 118/61 (80) 97 97.8 05/07/18 00:00 89 05/06/18 21:36 107/60 05/06/18 21:25 74 107/60 05/06/18 21:00 Room Air 05/06/18 20:00 71 05/06/18 20:00 98.0 74 19 107/60 (76) 97 98.0 05/06/18 16:00 69 05/06/18 16:00 97.0 66 97/53 (68) 97.0 05/06/18 14:00 110/58 05/06/18 12:00 71 05/06/18 09:00 Room Air 05/06/18 08:50 105/57 05/06/18 08:50 71 105/57 05/06/18 08:49 71 105/57 Intake and Output 05/06/18 05/07/18 19:00 07:00 Intake Total 360 ml 1542 ml Balance 360 ml 1542 ml Intake Oral 360 ml 460 ml IV Total 1082 ml # Voids 1 # Bowel Movements 2 Laboratory Tests 05/07/18 06:05: Sodium Level [Pending], Potassium Level [Pending], Chloride Level [Pending], Carbon Dioxide Level [Pending], Blood Urea Nitrogen [Pending], Creatinine [ Pending], Estimat Glomerular Filtration Rate [Pending], Glucose Level [Pending] , Calcium Level [Pending], Phosphorus Level [Pending] Height (Feet): 5 Height (Inches): 7.00 Weight (Pounds): 182 General Appearance: no apparent distress, alert EENT: normal ENT inspection Neck: normal alignment, supple Cardiovascular: normal rate, regular rhythm Respiratory/Chest: lungs clear, normal breath sounds Abdomen: normal bowel sounds, non tender, soft Edema: no edema noted Arm (L), no edema noted Arm (R), no edema noted Leg (L), no edema noted Leg (R), no edema noted Pedal (L), no edema noted Pedal (R), no edema noted Generalized Esteban Maldonado M.D. May 07, 2018 08:38
[2018-05-07 08:50] LABS: ANION GAP 20 mmol/L (5-15); BLOOD UREA NITROGEN 83 mg/dL (7-18); CALCIUM 8.6 MG/DL (8.5-10.1); CARBON DIOXIDE 19 MMOL/L (21-32); CHLORIDE 96 MMOL/L (98-107); CREATININE 7.5 MG/DL (0.55-1.30); PHOSPHORUS 6.3 MG/DL (2.5-4.9); SODIUM 135 MMOL/L (136-145)
[2018-05-07] MEDS: Heparin 5000 units/ml inj SUBQ SCH ×2 (09:00→20:26)
[2018-05-07] MEDS: Carvedilol 12.5mg tab ORAL SCH ×2 (09:00→20:24)
[2018-05-07] MEDS: Losartan 50mg tab ORAL SCH (09:00)
[2018-05-07] MEDS: Aspirin EC 81mg tab ORAL SCH (09:42)
[2018-05-07] MEDS: GlipiZIDE 5mg tab ORAL SCH ×2 (09:43→20:24)
--- NOTE | 2018-05-07 11:32 | Infectious Diseases Prog Note ---
Assessment/Plan Assessment/Plan antibiotics : vancomycin iv. zosyn A 1. right foot ulcer r/o osteomyelitis 2. PVD 3. diabetes mellitus 4. renal failure P 1. continue vancomycin iv. zosyn 2. will follow up cultures 3. MRI of right foot Subjective ROS Limited/Unobtainable: Yes Allergies: Coded Allergies: No Known Allergies (Unverified , 05/25/15) Objective Vital Signs Last 24 Hour Vital Signs Date Time Temp Pulse Resp B/P (MAP) Pulse Ox O2 Delivery O2 Flow Rate FiO2 05/07/18 09:00 Room Air 05/07/18 08:00 71 05/07/18 08:00 97.2 61 20 101/61 (74) 97 97.2 05/07/18 05:46 102/44 05/07/18 04:00 98.1 67 18 102/44 (63) 97 98.1 05/07/18 04:00 69 05/07/18 00:00 97.8 66 19 118/61 (80) 97 97.8 05/07/18 00:00 89 05/06/18 21:36 107/60 05/06/18 21:25 74 107/60 05/06/18 21:00 Room Air 05/06/18 20:00 71 05/06/18 20:00 98.0 74 19 107/60 (76) 97 98.0 05/06/18 16:00 69 05/06/18 16:00 97.0 66 97/53 (68) 97.0 05/06/18 14:00 110/58 05/06/18 12:00 71 Height (Feet): 5 Height (Inches): 7.00 Weight (Pounds): 182 Respiratory/Chest: lungs clear Cardiovascular: normal rate, regular rhythm, no gallop/murmur Abdomen: soft, non tender Extremities: no edema, other - right big toe ulcer, medial malleolus ulcer Microbiology Date/Time Source Procedure Growth Status 05/05/18 00:45 Blood Blood Culture - Preliminary NO GROWTH AFTER 48 HOURS Resulted 05/05/18 00:40 Blood Blood Culture - Preliminary NO GROWTH AFTER 48 HOURS Resulted 05/05/18 06:30 Nasal Nares MRSA Culture - Final Staphylococcus Aureus - Mrsa Complete 05/05/18 06:30 Rectum VRE Culture - Final NO VANCOMYCIN RESISTANT ENTEROCOCCUS ... Complete 05/05/18 06:30 Foot Right Gram Stain - Final Resulted 05/05/18 06:30 Foot Right Wound Culture Pending Resulted Laboratory Tests Test 05/07/18 06:05 Sodium Level 135 MMOL/L (136-145) L Potassium Level 5.0 MMOL/L (3.5-5.1) Chloride Level 96 MMOL/L (98-107) L Carbon Dioxide Level 19 MMOL/L (21-32) L Anion Gap 20 mmol/L (5-15) H Blood Urea Nitrogen 83 mg/dL (7-18) H Creatinine 7.5 MG/DL (0.55-1.30) H Estimat Glomerular Filtration Rate 7.2 mL/min (>60) Glucose Level 267 MG/DL (74-106) #H Calcium Level 8.6 MG/DL (8.5-10.1) Phosphorus Level 6.3 MG/DL (2.5-4.9) H Current Medications Medications (Trade) Dose Ordered Sig/Rosalinda Route PRN Reason Start Time Stop Time Status Last Admin Dose Admin Acetaminophen (Tylenol) 650 mg Q4H PRN ORAL Mild Pain/Temp > 100.5 05/05/18 06:00 06/04/18 05:59 05/06/18 02:02 Acetaminophen/ Hydrocodone Bitart ([place] 5/325) 1 tab Q4H PRN ORAL Moderate Pain (Pain Scale 4-6) 05/06/18 05:30 05/13/18 05:29 05/06/18 05:32 Acetaminophen/ Hydrocodone Bitart ([place] 5/325) 2 tab Q4H PRN ORAL Severe Pain (Pain Scale 7-10) 05/06/18 05:30 05/13/18 05:29 Al Hydroxide/Mg Hydroxide (Mylanta) 30 ml Q4HR PRN ORAL indigestion 05/05/18 06:00 06/04/18 05:59 Amlodipine Besylate (Norvasc) 10 mg DAILY ORAL 05/06/18 09:00 06/05/18 08:59 Aspirin (Ecotrin) 81 mg DAILY ORAL 05/06/18 09:00 06/05/18 08:59 05/07/18 09:42 Atorvastatin Calcium (Lipitor) 80 mg BEDTIME ORAL 05/06/18 21:00 06/05/18 20:59 05/06/18 21:25 Carvedilol (Coreg) 12.5 mg EVERY 12 HOURS ORAL 05/06/18 09:00 06/05/18 08:59 05/06/18 21:25 Cetirizine HCl (ZyrTEC) 10 mg DAILY ORAL 05/06/18 09:00 06/05/18 08:59 05/07/18 09:42 Clopidogrel Bisulfate (Plavix) 75 mg DAILY ORAL 05/06/18 09:00 06/05/18 08:59 05/07/18 09:42 Dextrose (Dextrose 50%) 25 ml STAT PRN IV Hypoglycemia 05/05/18 06:15 06/04/18 06:14 Dextrose (Dextrose 50%) 50 ml STAT PRN IV Hypoglycemia 05/05/18 06:15 06/04/18 06:14 Epoetin Evgeny (Procrit (for ESRD on dialysis)) 7,000 units SUN-SUN-SUN SUBQ 05/08/18 21:00 06/07/18 20:59 Glipizide (Glucotrol) 10 mg Q12HR ORAL 05/05/18 22:15 06/04/18 22:14 05/07/18 09:43 Heparin Sodium (Porcine) (Heparin 5000 units/ml) 5,000 units EVERY 12 HOURS SUBQ 05/05/18 09:00 06/04/18 08:59 05/06/18 21:29 Hydralazine HCl (Apresoline) 50 mg EVERY 8 HOURS ORAL 05/05/18 22:00 06/04/18 21:59 Insulin Aspart (NovoLOG) BEFORE MEALS AND HS SUBQ 05/05/18 06:30 06/04/18 06:29 05/07/18 06:15 Lansoprazole (Prevacid) 30 mg DAILY ORAL 05/05/18 09:00 06/04/18 08:59 05/07/18 09:42 Losartan Potassium (Cozaar) 100 mg DAILY ORAL 05/06/18 09:00 06/05/18 08:59 Magnesium Hydroxide (Mom) 30 ml DAILYPRN PRN ORAL Constipation 05/05/18 06:00 06/04/18 05:59 Piperacillin Sod/ Tazobactam Sod 2.25 gm/Dextrose 55 ml @ 110 mls/hr Q8H IV 05/05/18 10:00 05/12/18 09:59 05/07/18 10:40 Trazodone HCl (Desyrel) 25 mg BEDTIME ORAL 05/05/18 22:15 06/04/18 22:14 05/06/18 21:25 Vancomycin HCl (Vanco rx to dose) 1 ea DAILY PRN MISC Per rx protocol 05/05/18 06:15 06/04/18 06:14 Zolpidem Tartrate (Ambien) 5 mg HSPRN PRN ORAL Insomnia 05/05/18 06:00 05/12/18 05:59 TIESHA TALBERT May 07, 2018 11:32
[2018-05-07 12:00] VITALS: BP 118/57
[2018-05-07] MEDS: Norco 5mg/325mg tab ORAL PRN ×2 (14:10→19:34)
[2018-05-07 16:00] VITALS: BP 111/56
[2018-05-07 20:00] VITALS: BP 120/56
[2018-05-07] MEDS: TraZODone HCl 25 mg tablet ORAL SCH (20:24)
[2018-05-07] MEDS: Atorvastatin 80mg tab ORAL SCH (20:27)
[2018-05-08] VITALS: BP 105/56
[2018-05-08] MEDS: Norco 5mg/325mg tab ORAL PRN ×4 (00:10→18:44)
[2018-05-08] MEDS: Piperacillin/Tazobactam 2.25 GM in D5W 55 ML IV SCH ×2 (01:48→09:25)
[2018-05-08 04:00] VITALS: BP_SYST 105; BP_SYST 136; BP_DIAS 58; BP_DIAS 63
[2018-05-08] MEDS: HydrALAZINE 50mg tab ORAL SCH ×3 (05:05→22:00)
[2018-05-08] MEDS: NovoLOG Insulin Flexpen SUBQ SCH ×4 (06:13→23:25)
[2018-05-08 08:00] VITALS: BP 92/49
--- NOTE | 2018-05-08 08:49 | Nephrology Progress Note ---
Assessment/Plan Assessment/Plan 1. ESRD- HD TTS 2. LE Cellulitis- Abx 3. Anemia of CKD - EPO 3 x week 4. SHPT- check phos levels and add binders if necessary - add renvela with meals Subjective Date patient seen: May 08, 2018 Time patient seen: 08:46 ROS Limited/Unobtainable: No Allergies: Coded Allergies: No Known Allergies (Unverified , 05/25/15) Subjective Patient doing well, no complaints Objective Last 24 Hour Vital Signs Date Time Temp Pulse Resp B/P (MAP) Pulse Ox O2 Delivery O2 Flow Rate FiO2 05/08/18 05:14 97.6 05/08/18 05:05 105/58 05/08/18 04:15 97.6 05/08/18 04:00 78 05/08/18 04:00 98.1 80 18 105/58 (74) 98 98.1 05/08/18 01:09 97.6 05/08/18 00:10 97.6 05/08/18 00:00 97.5 78 20 105/56 (72) 97 97.5 05/08/18 00:00 73 05/07/18 22:00 109/59 05/07/18 21:00 Room Air 05/07/18 20:24 79 126/59 05/07/18 20:00 87 05/07/18 20:00 97.0 78 22 120/56 (77) 98 97.0 05/07/18 18:57 Room Air 05/07/18 16:00 66 05/07/18 16:00 97.6 69 20 111/56 (74) 96 97.6 05/07/18 15:30 Room Air 05/07/18 12:00 97.5 72 20 118/57 (77) 96 97.5 05/07/18 12:00 66 05/07/18 09:00 Room Air Intake and Output 05/07/18 05/08/18 19:00 07:00 Intake Total 360 ml 220 ml Output Total 2600 ml Balance -2240 ml 220 ml Intake Oral 360 ml IV Total 220 ml Output Hemodialysis UF 2600 ml # Bowel Movements 1 Laboratory Tests 05/08/18 06:50: Sodium Level [Pending], Potassium Level [Pending], Chloride Level [Pending], Carbon Dioxide Level [Pending], Blood Urea Nitrogen [Pending], Creatinine [ Pending], Estimat Glomerular Filtration Rate [Pending], Glucose Level [Pending] , Calcium Level [Pending], Random Vancomycin Level [Pending] Height (Feet): 5 Height (Inches): 7.00 Weight (Pounds): 185 General Appearance: no apparent distress, alert EENT: normal ENT inspection Neck: non-tender, normal alignment, supple Cardiovascular: normal rate, regular rhythm Respiratory/Chest: lungs clear, normal breath sounds Abdomen: normal bowel sounds, non tender, soft Edema: no edema noted Arm (L), no edema noted Arm (R), no edema noted Leg (L), no edema noted Leg (R), no edema noted Pedal (L), no edema noted Pedal (R), no edema noted Generalized Esteban Maldonado M.D. May 08, 2018 08:49
[2018-05-08] MEDS: Losartan 50mg tab ORAL SCH (09:00)
[2018-05-08] MEDS: Carvedilol 12.5mg tab ORAL SCH ×2 (09:00→23:14)
[2018-05-08 09:10] LABS: ANION GAP 14 mmol/L (5-15); BLOOD UREA NITROGEN 52 mg/dL (7-18); CALCIUM 8.7 MG/DL (8.5-10.1); CARBON DIOXIDE 27 MMOL/L (21-32); CHLORIDE 98 MMOL/L (98-107); CREATININE 6.1 MG/DL (0.55-1.30); POTASSIUM 3.8 MMOL/L (3.5-5.1); SODIUM 139 MMOL/L (136-145)
[2018-05-08] MEDS: Aspirin EC 81mg tab ORAL SCH (09:23)
[2018-05-08] MEDS: Heparin 5000 units/ml inj SUBQ SCH (09:23)
[2018-05-08] MEDS: GlipiZIDE 5mg tab ORAL SCH ×2 (09:24→23:13)
--- NOTE | 2018-05-08 10:41 | General Progress Note ---
Assessment/Plan Assessment/Plan IMPRESSION ESRD anemia possible sepsis wound infection PAD DM HTN elevated troponin, likely leak ischemic foot PVD arterial occlusion PLAN monitor sugars wound care and management iv antibiotics ID eval noted renal for HD appreciated has been on HD chronically vascular noted will call podiatry guarded and may need amputation stabilize but at present too ill to dc may need snf impression, plan, and exam edited and reviewed in detail care discussed with RN Subjective Allergies: Coded Allergies: No Known Allergies (Unverified , 05/25/15) Subjective all appreciated undergoing HD seen by vascular ischemic foot ID follow up and cultures noted Objective Last 24 Hour Vital Signs Date Time Temp Pulse Resp B/P (MAP) Pulse Ox O2 Delivery O2 Flow Rate FiO2 05/08/18 09:00 92/49 05/08/18 09:00 72 92/49 05/08/18 09:00 72 92/49 05/08/18 05:14 97.6 05/08/18 05:05 105/58 05/08/18 04:15 97.6 05/08/18 04:00 78 05/08/18 04:00 98.1 80 18 105/58 (74) 98 98.1 05/08/18 01:09 97.6 05/08/18 00:10 97.6 05/08/18 00:00 97.5 78 20 105/56 (72) 97 97.5 05/08/18 00:00 73 05/07/18 22:00 109/59 05/07/18 21:00 Room Air 05/07/18 20:24 79 126/59 05/07/18 20:00 87 05/07/18 20:00 97.0 78 22 120/56 (77) 98 97.0 05/07/18 18:57 Room Air 05/07/18 16:00 66 05/07/18 16:00 97.6 69 20 111/56 (74) 96 97.6 05/07/18 15:30 Room Air 05/07/18 12:00 97.5 72 20 118/57 (77) 96 97.5 05/07/18 12:00 66 Intake and Output 05/07/18 05/08/18 19:00 07:00 Intake Total 360 ml 220 ml Output Total 2600 ml Balance -2240 ml 220 ml Intake Oral 360 ml IV Total 220 ml Output Hemodialysis UF 2600 ml # Bowel Movements 1 Laboratory Tests 05/08/18 06:50: Sodium Level 139, Potassium Level 3.8, Chloride Level 98, Carbon Dioxide Level 27, Anion Gap 14, Blood Urea Nitrogen 52H, Creatinine 6.1H, Estimat Glomerular Filtration Rate 9.2, Glucose Level 140#H, Calcium Level 8.7, Random Vancomycin Level 26.7 Height (Feet): 5 Height (Inches): 7.00 Weight (Pounds): 185 Objective Sp02 EP Interpretation: reviewed, normal General Appearance: well appearing, no apparent distress, alert Head: normocephalic, atraumatic Eyes: bilateral eye PERRL, bilateral eye EOMI ENT: hearing grossly normal, normal pharynx Neck: full range of motion, supple, no meningismus Respiratory: chest non-tender, lungs clear, normal breath sounds Cardiovascular #1: regular rate, rhythm, no murmur Gastrointestinal: normal bowel sounds, non tender, Musculoskeletal: Right foot: ecchymosis from midfoot to calcaneus. ischemic and cold Neurologic: alert, oriented x3 Psychiatric: mood/affect normal Skin: warm/dry Alvaro Espinoza MD May 08, 2018 10:41
[2018-05-08 10:47] LABS: HEMOGLOBIN 9.2 G/DL (14.2-18.0); MEAN CORPUSCULAR VOLUME 87 FL (80-99); PLATELET COUNT 236 K/UL (150-450); RED BLOOD COUNT 3.33 M/UL (4.70-6.10); RED CELL DISTRIBUTION WIDTH 14.9 % (11.6-14.8); WHITE BLOOD COUNT 16.8 K/UL (4.8-10.8)
--- NOTE | 2018-05-08 11:00 | Diagnostic Imaging Report ---
APPROVED REPORT CPT Code: 03259 Symptoms Comments: PAD Cellulitis of Right leg RIGHT LEG: Common femoral artery waveform analysis is within normal limits at rest. Color flow duplex sonography reveals an occlusion in the proximal superficial femoral artery just after bifurcation. Reconstitution is noted distally at the level of the adductor canal. The stented popliteal artery is patent. The tibioperoneal trunk was not well visualized. The distal posterior tibial, and dorsalis pedis arteries are occluded. The proximal posterior tibial, and anterior tibial arteries are patent and heavily calcified. The Doppler tibial artery waveform analysis is compatible with critical ischemia at rest. NIDHI Kumari notified of abnormal results at 1525 hours.
[2018-05-08] MEDS ORDERED: Heparin 5000 units/ml inj IV ONE (11:10)
[2018-05-08] MEDS ORDERED: Heparin 25,000u/D5W 500ml 500 ML IV SCH ×3 (11:10→22:30)
[2018-05-08 12:00] VITALS: BP 98/53
--- NOTE | 2018-05-08 14:04 | Diagnostic Imaging Report ---
Indication: Right ankle pain and ulceration/cellulitis. Technique: Right ankle/hind foot imaging utilizing multiplanar T1 fast spin-echo, proton and T2 fast spin-echo with fat saturation, and STIR. Comparison: None Findings: A marker was placed in the medial part of the ankle/hind foot. There is adjacent subcutaneous edema consistent with cellulitis. The visualized bone marrow signal which include the medial malleolus appear normal. There is no evidence of osteomyelitis. No obvious abscess identified. The Achilles tendon and plantar aponeurosis appear unremarkable. There is no evidence of Taisha synovitis. No joint effusion identified. Tarsal sinus is unremarkable. IMPRESSION: Cellulitis of the foot as described above. No evidence of acute osteoarthritis or obvious abscess
--- NOTE | 2018-05-08 14:12 | Diagnostic Imaging Report ---
Indication: Pain and swelling involving the forefoot and great toe. Technique: Right forefoot imaging utilizing multiplanar T1 fast spin-echo, proton and T2 fast spin-echo with fat saturation, and STIR. Comparison: None Findings: There is subcutaneous edema demonstrated throughout the foot. Focal ulceration noted adjacent to the first distal phalange. Bone marrow signal is normal within the hallux and remainder of the osseous structures. There is no abscess identified. IMPRESSION: Cellulitis of the foot. No evidence of acute osteomyelitis or abscess.
--- NOTE | 2018-05-08 14:57 | Diagnostic Imaging Report ---
Indication: 67-year-old male with right foot ulceration and cellulitis. Peripheral vascular disease. Renal failure and diabetes mellitus. Leg pain Technique: Continuous helical transaxial imaging of the abdomen and pelvis and bilateral lower showing a runoff was obtained from the lung base to both feet during rapid intravenous contrast administration. Arterial phase of enhancement obtained. Coronal 2-D reformats were also obtained and maximum intensity projection images in multiple planes. Study obtained in a Siemens sensation [address] Vessel probe analysis and other reconstructions not available. Total Dose length Product (DLP): [address] Dose Index Volume (CTDIvol): 0.15, 8.11, 154.11, 10.26, 5.26 mGy Comparison: None Findings: Aortogram and iliac angiogram: There is extensive calcification of the wall of aorta which is a normal in caliber. There is no dissection identified. There is moderate calcific plaque at the origins of both the celiac artery and SMA. SMA stenosis estimated at about 40%. Celiac artery stenosis estimated at about 60%. High-grade stenosis demonstrated at the origin of the right renal artery. Moderate to high-grade stenosis estimated within the origin of the left renal artery. Moderate multisegmental stenosis demonstrated within both common iliac arteries and external iliac arteries, moderate in degree. Degree of stenoses estimated at the upwards of 60%. Right lower extremity runoff: The SFA is occluded at its origin. Short segment reconstitution of portions of the SFA are noted but there is severe multisegmental stenoses throughout the vessel. Faint the popliteal artery opacification noted. The trifurcation vessels are heavily calcified and they're status is unknown. Conventional angiogram is recommended for further evaluation. Left lower extremity runoff: Moderate to severe multisegmental stenosis demonstrated due to extensive calcific plaque. However the SFA does appear open as does the popliteal artery. The trifurcation vessels are moderately diseased. Portions that the are not calcified do appear to opacify with contrast material indicating some degree of a three-vessel runoff. Again, conventional angiogram is recommended for further evaluation of this. Nonvascular findings: There is a moderate degree of ascites demonstrated within the abdomen and pelvis. Gallbladder is contracted. Kidneys are atrophic. There is a 7 cm cyst in the left kidney. Normal appendix incidentally noted. Bladder is nondistended. Anasarca noted. IMPRESSION: Aorta showing no evidence of aneurysm or dissection. Mild to moderate stenosis of the origins of the celiac artery and SMA estimated at between 40 and 60%. High-grade stenosis demonstrated within both renal arteries. Associated atrophy of both kidneys probably on the basis of chronic vascular disease. Bilateral lower extremity runoff is relatively nondiagnostic on this examination due to the extensive degree of calcific plaque present. Recommend conventional angiogram to evaluate further. That said, severe multisegmental stenoses involving the right SFA, popliteal artery and trifurcation arteries to the foot. Moderate to severe disease in the left lower chest may runoff. Nonvascular findings notable for moderate ascites. Other incidental findings as above. The CT scanner at [facility] [place] is accredited by the [employer] and the scans are performed using dose optimization techniques as appropriate to a performed exam including Automatic Exposure control.
[2018-05-08 16:00] VITALS: BP 107/51
[2018-05-08] MEDS ORDERED: NS 275ml ONE (17:00)
[2018-05-08 20:00] VITALS: BP 117/58
[2018-05-08] MEDS ORDERED: Epogen (for ESRD on dialysis) SUBQ SCH (21:00)
[2018-05-08] MEDS: TraZODone HCl 25 mg tablet ORAL SCH (23:13)
[2018-05-08] MEDS: Atorvastatin 80mg tab ORAL SCH (23:13)
[2018-05-09] VITALS: BP 104/55
--- NOTE | 2018-05-09 00:10 | General Progress Note ---
Progress Note Progress Note Patient seen and examined earlier Ischemic cold right foot with necrosis and gangrenous changes with absent pop pedal pulses Hx of recent right leg angio interventions by a physician in outside center Severe PAD calcific HTN DM ESRD on HD via right arm av shunt Rec Anticoagulate CT angio Podiatry eval Will need selective right leg angio Foot gangrene and level amputation based on above d/w pmd d/w pt and nurse at bedside Eugene Forbes MD May 09, 2018 00:10
--- NOTE | 2018-05-09 01:30 | Consultation ---
DATE OF CONSULTATION: 05/08/2018 PODIATRIC CONSULTATION HISTORY OF PRESENT ILLNESS: This is a 67-year-old, patient who was admitted through the emergency room on 05/05/2018 for weakness, pain, and inability to stand and ambulate. The patient noted that he underwent right leg surgery most likely angioplasty to his right lower extremity. PAST MEDICAL HISTORY: Remarkable for diabetes mellitus, end-stage renal disease with hemodialysis, and peripheral vascular disease. MEDICATIONS: Norvasc, Ecotrin, Lipitor, Coreg, Glucotrol, NovoLog, Prevacid, and Cozaar. While in the hospital, the patient is on IV vancomycin and Zosyn. ALLERGIES: No know drug allergies. PODIATRIC PHYSICAL EXAMINATION: VASCULAR EXAMINATION: The vascular examination reveals nonpalpable pulses, dorsalis pedis and posterior tibial arteries. The capillary filling time is less than 7 to 8 seconds in bilateral digits. EXTREMITIES: The extremities are cold bilaterally with the right foot being extremely cold. Mild edema is present at the level of the right foot and ankle. No lymphangitis or palpable nodes are noted bilaterally. MUSCULOSKELETAL EXAMINATION: Reveals bilateral foot with atrophy of the intrinsic muscles and mild hammertoe deformities of digits 2 through 5 bilaterally. No other skeletal deformities are noted bilaterally. NEUROLOGICAL EXAMINATION: Reveals reduced reflexes, Achilles, and patella bilaterally. Sensation was diminished to bilateral foot and ankle; however, severe pain was noted to touch of the right foot secondary to ischemic pain. DERMATOLOGICAL EXAMINATION: Reveals stage I ulceration of the right foot with sloughing of the skin overlying the hallux and the medial arch. Erythematous patches and pregangrenous lesions are seen over the dorsal and plantar aspect of the right foot. Range of motion of the right foot is guarded and very painful by the patient. All nails are present and mycotic bilaterally. No scars noted on the left leg. Medial scars overlying the proximal aspect of the ankle is noted on the right side. IMAGING: Right foot x-ray, right foot MRI, and right foot ankle examinations were negative for bone deformities or infections. CT angio revealed occlusion of the right SFA and severe multisegmental stenosis throughout the vessel with trifurcation. Vessels are heavily calcified. ASSESSMENT: 1. Diabetes mellitus. 2. End-stage renal disease, on hemodialysis. 3. Critical leg ischemia with occlusion of the arteries and pregangrene and ulceration of the right foot. PLAN: 1. Continue IV antibiotics. 2. We will refer to vascular consult. Right leg vascular intervention at this point may not be possible and amputation of the right lower extremity may be indicated. 3. Monitor status of the right foot with local wound care consisting of dry dressing changes daily. Thank you, Dr. Espinoza, for allowing me to see this patient in consultation. Gustavo NassarPGaroMGaro DR: HILDA JOB#: [id number] CC:
[2018-05-09 04:00] VITALS: BP 112/55
[2018-05-09 05:26] LABS: ANION GAP 15 mmol/L (5-15); BLOOD UREA NITROGEN 58 mg/dL (7-18); CALCIUM 8.3 MG/DL (8.5-10.1); CARBON DIOXIDE 26 MMOL/L (21-32); CHLORIDE 95 MMOL/L (98-107); CREATININE 7.2 MG/DL (0.55-1.30); POTASSIUM 4.2 MMOL/L (3.5-5.1); SODIUM 136 MMOL/L (136-145)
--- NOTE | 2018-05-10 12:32 | Discharge Summary ---
Discharge Summary Discharge Summary _ DATE OF ADMISSION: 05/05/2018 DATE OF DISCHARGE: 05/09/2018 CONSULTANTS: Dr. Esteban Child [facility] HOSPITAL COURSE: Patient is a 67-year-old male, with history of renal failure on hemodialysis, presented to ED via EMS due to significant weakness. He denied fever or chills. 2 weeks prior he had arterial bypass; 3 days prior he noticed discoloration and swelling to the right foot that has been getting worse. He was unable to bear weight on the foot. On evaluation at ED, he was febrile temperature 100.6. Right foot was noted to have edema and ecchymosis from midfoot to calcaneus. There was no pulse palpated or dopplered on the foot. Blood work showed leukocytosis WBC was 20. Glucose was elevated to 646. Foot x-ray showed possible nondisplaced fractures at the base of the third through fifth proximal phalanges. He was seen by veterinary surgeon. He was continued on hemodialysis. Patient has anemia of chronic kidney disease and was given Epogen. He was given vancomycin and Zosyn. He had elevated troponin levels possibly troponin leak. He was continued on aspirin, Plavix and Lipitor. Blood glucose was monitored and was given glipizide twice a day and NovoLog sliding scale. He was given wound care and management. MRI of the foot did not show any evidence of acute osteomyelitis or abscess. Arterial duplex scan of the right lower extremity revealed occlusion in the proximal superficial femoral artery. Doppler tibial artery waveform analysis was compatible with critical ischemia at rest. Patient has ischemic and cold right foot with necrosis and gangrenous changes with apparently absent popliteal and pedal pulses. Will eventually need right leg angiogram to assess foot gangrene and level amputation. He was eventually discharged to [facility]. FINAL DIAGNOSES: Possible sepsis Wound infection/right lower extremity cellulitis Peripheral arterial disease Hypertension Elevated troponin likely due to leak Ischemic foot Arterial occlusion Peripheral vascular disease End-stage renal disease on hemodialysis Secondary hyperparathyroid (SHPT) Anemia of chronic kidney disease DISPOSITION: Patient was transferred to [facility]. I have been assigned to dictate discharge summary on this account, and I was not involved in the patient's management. Aimee Woo NP May 10, 2018 12:32
--- NOTE | 2018-05-12 12:39 | Cardiology Report ---
APPROVED REPORT EKG Measurement Heart [id number] Normal sinus rhythm Right bundle branch block Downsloping diffuse ST segment depression s/o subendocardial ischemia vs digoxin effect. Abnormal ECG
--- NOTE | 2018-05-13 03:00 | Consultation ---
DATE OF CONSULTATION: 05/08/2018 VASCULAR SURGERY CONSULTATION CONSULTING PHYSICIAN: Eugene Forbes M.D. REFERRING PHYSICIAN: Alvaro Espinoza M.D. REASON FOR CONSULTATION: Right foot necrosis and gangrene. HISTORY OF PRESENT COMPLAINT: This is a 67-year-old male, who suffers from multiple morbidities, end-stage renal disease, on hemodialysis through a right arm shunt; diabetes; and hypertension. The patient already had bilateral lower extremity angiography and intervention by another physician at another center. The patient has had several-week history of right foot, cold; necrosis; and pain. The patient was found to have gangrenous changes with leukocytosis. Vascular Surgery is consulted for further evaluation. PAST MEDICAL HISTORY: As above. History of diabetes mellitus; hypertension; end-stage renal failure, on hemodialysis through a right arm AV shunt; multiple lower extremity intervention and angiography by another physician at another center; and history of calcific PAD, multilevel. MEDICATIONS: See attached MAR. ALLERGIES: No known drug allergies. SOCIAL HISTORY: Former heavy smoker. Denies history of smoking, drugs, or alcohol abuse. FAMILY HISTORY: Unremarkable. REVIEW OF SYSTEMS: CARDIOVASCULAR: No history of chest pain or palpitations. PULMONARY: No cough. No hemoptysis. GASTROINTESTINAL: No history of abdominal pain, constipation, or diarrhea. GENITOURINARY: No dysuria, frequency, or urgency. NEUROLOGICAL: No history of stroke or seizures. PHYSICAL EXAMINATION: VITAL SIGNS: The patient is afebrile at 97 degrees, heart rate 78, blood pressure 140/60, and respiratory rate 16. The patient has palpable pulses of the right arm AV shunt thrill. LUNGS: Clear to auscultation. HEART: Regular rate and rhythm. ABDOMEN: Soft and nontender. EXTREMITIES: He has palpable femoral pulses. Absent popliteal and pedal pulses bilaterally. Left foot is warm without any ulceration. Right foot has gangrenous necrosis of the heel and all the toes. Ischemia and coolness up to the ankle level. IMPRESSION: 1. Ischemic right foot gangrene and necrosis with coolness and thrombosis. 2. History of multiple lower extremity angiography and intervention by another physician at another center. 3. Multiple risk factors with end-stage renal failure, on hemodialysis through a right arm AV shunt. 4. Diabetes mellitus, hypertension, and calcific multilevel peripheral arterial disease. The patient should be on anticoagulation. We will obtain a CT angiography to assess the run-off. Arterial duplex is ordered with Podiatry assessment to assess for limb salvage. The patient will require right foot gangrene and necrosis amputation given the extensive ischemia and necrotic tissue. 5. The above was discussed at length with the patient, the nurse at bedside, and Nadege, the daughter as the next of kin and the emergency contact. Eugene Forbes M.D. DR: ROYA JOB#: [id number] CC: Alvaro Espinoza M.D.; Fax#: [phone]
== END 2018-05-09 04:30 | disposition short-term general hospital (02) | DRG 871 ==
LOC: EDBD 00:14 → EMR 01:45 → 2E 04:00 → MERGE 04:00 → EDBEDREQ 04:08 → 2E 05:21
PROC: 5A1D70Z Performance of Urinary Filtration, Intermittent, Less than 6 Hours Per Day (ICD-10-PCS; principal; 2018-05-07)
DX: A41.9 Sepsis, unspecified organism (principal); N18.6 End stage renal disease; L03.115 Cellulitis of right lower limb; I12.0 Hypertensive chronic kidney disease with stage 5 chronic kidney disease or end stage renal disease; N25.81 Secondary hyperparathyroidism of renal origin; Z99.2 Dependence on renal dialysis; I77.1 Stricture of artery; D63.1 Anemia in chronic kidney disease; I77.89 Other specified disorders of arteries and arterioles; E11.65 Type 2 diabetes mellitus with hyperglycemia
CPT/HCPCS: 36415; 71045; 75635; 80048; 80053; 80202; 82550; 82553; 82962; 83605; 84100; 84484; 85007; 85025; 85610; 85730; 87040; 87070; 87081; 87205; 93005; 93926; 99291; J1815